=== PATIENT | female | born 1950 | race Caucasian/White ===

== ENCOUNTER 2017-05-07 22:41 | Emergency (ER) | payer MEDICARE, BC ==
[2017-05-07] MEDS ORDERED: RX INFO: IV CONTRAST WAS GIVEN 1 EACH MISC MISCELLANE PRN (23:30)
[2017-05-07 23:34] LABS: Basophils % (A) 0 %; CHCM 33.1; Eosinophils # (A) 0.1 k/uL (0-0.7); Eosinophils % (A) 0 %; HCT 41.1 % (34.0-46.0); HDW 2.24; HGB 13.5 gm/dL (11.4-16.0); Luc # (Auto) 0.11; Luc % (Auto) 1; Lymphocytes # (A) 1.1 k/uL (1.0-4.8); Lymphocytes % (A) 10 %; MCH 28.9 pg (25.0-35.0); MCHC 32.9 g/dL (31.0-37.0); MCV 87.9 fL (80.0-100.0); Mean Platelet Volume 7.2; Monocytes # (A) 0.8 k/uL (0-1.0); Monocytes % (A) 7 %; Neutrophils # (A) 9.5 k/uL (1.3-7.7); Neutrophils % (A) 82 %; RBC 4.68 m/uL (3.80-5.40); RDW 13.8 % (11.5-15.5); WBC 11.5 k/uL (3.8-10.6); WBC (Perox) 11.71
[2017-05-07 23:44] LABS: Partial Thromboplastin Time 22.6 sec (22.0-30.0)
[2017-05-07 23:45] LABS: ALT 33 U/L (9-52); AST 25 U/L (14-36); Alkaline Phosphatase 101 U/L (38-126); Anion Gap 12 mmol/L; Blood Urea Nitrogen 16 mg/dL (7-17); Calcium 9.9 mg/dL (8.4-10.2); Carbon Dioxide 25 mmol/L (22-30); Chloride 101 mmol/L (98-107); Glucose 136 mg/dL (74-99); Magnesium 1.7 mg/dL (1.6-2.3); Non-African American GFR(MDRD) >60 (>60 ml/min/1.73 sqM); Sodium 138 mmol/L (137-145); Total Bilirubin 0.5 mg/dL (0.2-1.3); Total Protein 7.2 g/dL (6.3-8.2)
[2017-05-07 23:46] LABS: Prothrombin Time 10.1 sec (9.0-12.0)
[2017-05-08 00:07] LABS: Creatine Kinase 121 U/L (30-135)
[2017-05-08 00:20] LABS: Creatine Kinase MB 1.3 ng/mL (0.0-2.4); Troponin I <0.012 ng/mL (0.000-0.034)
[2017-05-08] MEDS ORDERED: MORPHINE SULFATE 4 MG/ML SYRINGE IVP STA (00:31)
[2017-05-08] MEDS ORDERED: SODIUM CHLORIDE 0.9% 1,000 ML IV ONE (00:31)
--- NOTE | 2017-05-08 00:40 | ED ---
General Adult HPI - General Chief complaint: GI Bleed Stated complaint: Abd pain Time Seen by Provider: 05/07/17 22:59 Source: patient, family, RN notes reviewed Mode of arrival: ambulatory Limitations: no limitations - History of Present Illness Initial comments: 67-year-old female with no significant past medical history presents with crampy abdominal pain. This pain began last night. Describes it as both sides of her lower abdomen. She also fever and chills. Denies any nausea vomiting. States she's had some diarrhea which was clear mucus with some small amounts of blood. Only abdominal surgery is a remote history of hysterectomy. Denies dysuria. Denies chest pain or shortness of breath. Denies cough. - Related Data Home Medications Medication Instructions Recorded Confirmed Calcium Carbonate [Calcium] 600 mg PO TID 05/07/17 05/07/17 Cod Liver Oil 1 cap PO DAILY 05/07/17 05/07/17 Famotidine [Pepcid] 20 mg PO DAILY PRN 05/07/17 05/07/17 Multivitamins, Thera [Multivitamin 1 tab PO DAILY 05/07/17 05/07/17 (formulary)] Previous Rx's Medication Instructions Recorded Ciprofloxacin HCl [Cipro] 500 mg PO Q12HR #20 tablet 05/08/17 HYDROcodone/APAP 5-325MG [[place] 1 tab PO Q6HR PRN #24 tab 05/08/17 5-325] metroNIDAZOLE [Flagyl] 500 mg PO Q8HR #30 tab 05/08/17 Allergies Allergy/AdvReac Type Severity Reaction Status Date / Time erythromycin base AdvReac Severe Nausea & Verified 05/07/17 23:41 [From Erythrocin] Vomiting Review of Systems ROS Statement: Those systems with pertinent positive or pertinent negative responses have been documented in the HPI. ROS Other: All systems not noted in ROS Statement are negative. Past Medical History Past Medical History: No Reported History History of Any Multi-Drug Resistant Organisms: None Reported Past Surgical History: Hysterectomy Past Psychological History: No Psychological Hx Reported Smoking Status: Never smoker Past Alcohol Use History: None Reported Past Drug Use History: None Reported General Exam Limitations: no limitations General appearance: alert, in no apparent distress Head exam: Present: atraumatic, normocephalic Eye exam: Present: normal appearance, PERRL. Absent: scleral icterus ENT exam: Present: normal exam, mucous membranes moist Neck exam: Present: normal inspection, full ROM. Absent: meningismus Respiratory exam: Present: normal lung sounds bilaterally. Absent: respiratory distress, wheezes, rhonchi Cardiovascular Exam: Present: regular rate, normal rhythm GI/Abdominal exam: Present: soft, tenderness. Absent: distended, guarding ( Patient does have bilateral lower abdominal tenderness to palpation. No rebound or guarding), rebound Rectal exam: Present: normal inspection, normal rectal tone, heme (-) stool (No fecal material is obtained.). Absent: fecal impaction Extremities exam: Present: normal inspection, normal capillary refill. Absent: pedal edema Back exam: Present: normal inspection, full ROM Neurological exam: Present: alert, oriented X3, CN II-XII intact. Absent: motor sensory deficit Psychiatric exam: Present: normal affect, normal mood Skin exam: Present: warm, dry. Absent: cyanosis, diaphoretic Course Vital Signs 05/07/17 05/08/17 22:45 00:47 Temperature 101.1 F H 100.0 F H Pulse Rate 104 H 70 Respiratory 20 16 Rate Blood Pressure 134/73 111/70 O2 Sat by Pulse 96 Oximetry - Reevaluation(s) Reevaluation #1: 05/08/17 00:39 Reevaluation patient is still experiencing crampy lower abdominal pain. EKG Findings - EKG Comments: EKG Findings:: EKG shows normal sinus rhythm with a ventricular rate of 93, HI interval 160, QRS duration 82, QTC 4:30, no signs of ischemia Medical Decision Making - Medical Decision Making 67year-old female presenting with crampy abdominal pain, diarrhea which is really mucus with some small amounts of blood. Patient has no history of diverticulosis. When she presents she is febrile and tachycardic. CT abdomen is obtained which she shows uncomplicated diverticulitis, no abscess formation. Chest x-ray reviewed by myself is negative for any infectious process. Laboratory studies including CBC, CMP are unremarkable. Patient is not vomiting , she is able to tolerate oral medications. She will be discharged home with Cipro and Flagyl as well as pain medication. She is encouraged to return to the emergency department with worsening symptoms. Diagnosis: Diverticulitis - Lab Data Result diagrams: 05/07/17 23:26 05/07/17 23:26 Lab Results 05/07/17 05/07/1705/07/17 Range/Units 23:20 23:26 23:26 WBC 11.5 H (3.8-10.6) k/uL RBC 4.68 (3.80-5.40) m/uL Hgb 13.5 (11.4-16.0) gm/dL Hct 41.1 (34.0-46.0) % MCV 87.9 (80.0-100.0) fL MCH 28.9 (25.0-35.0) pg MCHC 32.9 (31.0-37.0) g/dL RDW 13.8 (11.5-15.5) % Plt Count 261 (150-450) k/uL Neutrophils % 82 % Lymphocytes % 10 % Monocytes % 7 % Eosinophils % 0 % Basophils % 0 % Neutrophils # 9.5 H (1.3-7.7) k/uL Lymphocytes # 1.1 (1.0-4.8) k/uL Monocytes # 0.8 (0-1.0) k/uL Eosinophils # 0.1 (0-0.7) k/uL Basophils # 0.0 (0-0.2) k/uL PT (9.0-12.0) sec INR (<1.2) APTT (22.0-30.0) sec Sodium (137-145) mmol/L Potassium (3.5-5.1) mmol/L Chloride (98-107) mmol/L Carbon Dioxide (22-30) mmol/L Anion Gap mmol/L BUN (7-17) mg/dL Creatinine (0.52-1.04) mg/dL Est GFR (MDRD) Af Amer (>60 ml/min/1.73 sqM) Est GFR (MDRD) Non-Af (>60 ml/min/1.73 sqM) Glucose (74-99) mg/dL Plasma Lactic Acid Salty (0.7-2.0) mmol/L Calcium (8.4-10.2) mg/dL Magnesium (1.6-2.3) mg/dL Total Bilirubin (0.2-1.3) mg/dL AST (14-36) U/L ALT (9-52) U/L Alkaline Phosphatase (38-126) U/L Total Creatine Kinase 121 (30-135) U/L CK-MB (CK-2) 1.3 (0.0-2.4) ng/mL CK-MB (CK-2) Rel Index 1.1 Troponin I <0.012 (0.000-0.034) ng/mL Total Protein (6.3-8.2) g/dL Albumin (3.5-5.0) g/dL Stool Occult Blood Negative (Negative) Blood Type Blood Type Recheck Antibody Screen Spec Expiration Date 05/07/17 05/07/17 05/07/17 Range/Units 23:26 23:26 23:26 WBC (3.8-10.6) k/uL RBC (3.80-5.40) m/uL Hgb (11.4-16.0) gm/dL Hct (34.0-46.0) % MCV (80.0-100.0) fL MCH (25.0-35.0) pg MCHC (31.0-37.0) g/dL RDW (11.5-15.5) % Plt Count (150-450) k/uL Neutrophils % % Lymphocytes % % Monocytes % % Eosinophils % % Basophils % % Neutrophils # (1.3-7.7) k/uL Lymphocytes # (1.0-4.8) k/uL Monocytes # (0-1.0) k/uL Eosinophils # (0-0.7) k/uL Basophils # (0-0.2) k/uL PT 10.1 (9.0-12.0) sec INR 1.0 (<1.2) APTT 22.6 (22.0-30.0) sec Sodium 138 (137-145) mmol/L Potassium 4.0 (3.5-5.1) mmol/L Chloride 101 (98-107) mmol/L Carbon Dioxide 25 (22-30) mmol/L Anion Gap 12 mmol/L BUN 16 (7-17) mg/dL Creatinine 0.50 L (0.52-1.04) mg/dL Est GFR (MDRD) Af Amer >60 (>60 ml/min/1.73 sqM) Est GFR (MDRD) Non-Af >60 (>60 ml/min/1.73 sqM) Glucose 136 H (74-99) mg/dL Plasma Lactic Acid Salty 1.0 (0.7-2.0) mmol/L Calcium 9.9 (8.4-10.2) mg/dL Magnesium 1.7 (1.6-2.3) mg/dL Total Bilirubin 0.5 (0.2-1.3) mg/dL AST 25 (14-36) U/L ALT 33 (9-52) U/L Alkaline Phosphatase 101 (38-126) U/L Total Creatine Kinase (30-135) U/L CK-MB (CK-2) (0.0-2.4) ng/mL CK-MB (CK-2) Rel Index Troponin I (0.000-0.034) ng/mL Total Protein 7.2 (6.3-8.2) g/dL Albumin 4.6 (3.5-5.0) g/dL Stool Occult Blood (Negative) Blood Type Blood Type Recheck Antibody Screen Spec Expiration Date 05/07/17 Range/Units 23:26 WBC (3.8-10.6) k/uL RBC (3.80-5.40) m/uL Hgb (11.4-16.0) gm/dL Hct (34.0-46.0) % MCV (80.0-100.0) fL MCH (25.0-35.0) pg MCHC (31.0-37.0) g/dL RDW (11.5-15.5) % Plt Count (150-450) k/uL Neutrophils % % Lymphocytes % % Monocytes % % Eosinophils % % Basophils % % Neutrophils # (1.3-7.7) k/uL Lymphocytes # (1.0-4.8) k/uL Monocytes # (0-1.0) k/uL Eosinophils # (0-0.7) k/uL Basophils # (0-0.2) k/uL PT (9.0-12.0) sec INR (<1.2) APTT (22.0-30.0) sec Sodium (137-145) mmol/L Potassium (3.5-5.1) mmol/L Chloride (98-107) mmol/L Carbon Dioxide (22-30) mmol/L Anion Gap mmol/L BUN (7-17) mg/dL Creatinine (0.52-1.04) mg/dL Est GFR (MDRD) Af Amer (>60 ml/min/1.73 sqM) Est GFR (MDRD) Non-Af (>60 ml/min/1.73 sqM) Glucose (74-99) mg/dL Plasma Lactic Acid Salty (0.7-2.0) mmol/L Calcium (8.4-10.2) mg/dL Magnesium (1.6-2.3) mg/dL Total Bilirubin (0.2-1.3) mg/dL AST (14-36) U/L ALT (9-52) U/L Alkaline Phosphatase (38-126) U/L Total Creatine Kinase (30-135) U/L CK-MB (CK-2) (0.0-2.4) ng/mL CK-MB (CK-2) Rel Index Troponin I (0.000-0.034) ng/mL Total Protein (6.3-8.2) g/dL Albumin (3.5-5.0) g/dL Stool Occult Blood (Negative) Blood Type A Positive Blood Type Recheck CABO Indicated Antibody Screen NEGATIVE Spec Expiration Date 05/10/20172325 Disposition Clinical Impression: Diverticulitis Disposition: HOME SELF-CARE Condition: Stable Instructions: Diverticulitis (ED) Prescriptions: Ciprofloxacin HCl [Cipro] 500 mg PO Q12HR #20 tablet HYDROcodone/APAP 5-325MG [[place] 5-325] 1 tab PO Q6HR PRN #24 tab PRN Reason: Pain metroNIDAZOLE [Flagyl] 500 mg PO Q8HR #30 tab Referrals: Shayna Farias MD [Primary Care Provider] - 1-2 days Time of Disposition: 01:00
[2017-05-08 00:49] VITALS: BP 111/70; PULSE 70; RESP 16; TEMP 100
--- NOTE | 2017-05-08 00:50 | CT ---
EXAM: CT Abdomen and Pelvis With Intravenous Contrast. CLINICAL HISTORY: Reason: Pain TECHNIQUE: Axial computed tomography images of the abdomen and pelvis with intravenous contrast. CTDI is 7 mGy and DLP is 347.6 mGy-cm. This CT exam was performed using one or more of the following dose reduction techniques: automated exposure control, adjustment of the mA and/or kV according to patient size, and/or use of iterative reconstruction technique. COMPARISON: No relevant prior studies available. FINDINGS: Lower thorax: No acute findings. ABDOMEN: Liver: Unremarkable. No mass. Gallbladder and bile ducts: Unremarkable. No calcified stones. No ductal dilation. Pancreas: Unremarkable. No ductal dilation. No mass. Spleen: Unremarkable. No splenomegaly. Adrenals: Unremarkable. No mass. Kidneys and ureters: Unremarkable. No hydronephrosis. No solid mass. PELVIS: Bladder: Unremarkable. No mass. Reproductive: Prior hysterectomy. Appendix: No findings to suggest acute appendicitis. ABDOMEN + PELVIS: Stomach and bowel: Moderate focal thickening of the sigmoid colon, with surrounding inflammatory change suggestive of uncomplicated sigmoid diverticulitis. No free air or abscess. No obstruction. Peritoneum: Unremarkable. No significant fluid collection. No free air. Lymph nodes: Unremarkable. No enlarged lymph nodes. Vasculature: Unremarkable. No aortic aneurysm. Bones: No acute fracture. IMPRESSION: Uncomplicated diverticulitis of the sigmoid colon.
[2017-05-08] MEDS ORDERED: metroNIDAZOLE 500 MG TAB PO STA (00:57)
[2017-05-08] MEDS ORDERED: CIPROFLOXACIN HCL 500 MG TAB PO STA (00:57)
[2017-05-08 01:07] LABS: Appearance,Urine Clear (Clear); Bacteria,Urine Rare /hpf; Bilirubin,Urine Negative (Negative); Glucose,Urine (UA) Negative (Negative); Ketones,Urine 1+ (Negative); Leukocyte Esterase,Urine Large (Negative); Mucus,Urine Rare /hpf; Nitrite,Urine Negative (Negative); PH, Urine 5.5 (5.0-8.0); Particle Count 3496; Protein,Urine Negative (Negative); RBC,Urine 2 /hpf (0-5); Specific Gravity,Urine 1.022 (1.001-1.035); Squamous Epithelial Cell,Urine 4 /hpf (0-4); UA Billing (MACRO vs. MICRO) MICRO; Urobilinogen,Urine <2.0 mg/dL (<2.0); WBC,Urine 15 /hpf (0-5)
--- NOTE | 2017-05-08 01:37 | XR ---
EXAM: XR Chest, 2 Views. CLINICAL HISTORY: Reason: Pain TECHNIQUE: Frontal and lateral views of the chest. COMPARISON: No relevant prior studies available. FINDINGS: Lungs: Unremarkable. No consolidation. Pleural spaces: Unremarkable. No pneumothorax. Heart: Unremarkable. No cardiomegaly. Mediastinum: Unremarkable. Bones: Unremarkable. No acute fracture. IMPRESSION: Normal chest.
== END 2017-05-08 01:31 | disposition home or self-care (01) ==
LOC: EC 22:41
DX: K57.32 Diverticulitis of large intestine without perforation or abscess without bleeding (principal); Z79.899 Other long term (current) drug therapy; Z88.1 Allergy status to other antibiotic agents; R00.0 Tachycardia, unspecified
CPT/HCPCS: 99285; 96374; 96361; 36415; 93005; 86900; 86901; 80053; 82550; 82553; 83605; 83735; 84484; 85025; 85610; 85730; 86850; 82272; 81001; 87040; 87086; 71020; 74177; J2270; Q9967

== ENCOUNTER → 2017-06-15 | Outpatient (CLI) | payer MEDICARE, BC ==
--- NOTE | 2017-06-16 10:07 | MM ---
Reason for exam: screening (asymptomatic). Last mammogram was performed 1 year ago. History: Family history of breast cancer in maternal grandmother at age 80. Physical Findings: A clinical breast exam by your physician is recommended on an annual basis and results should be correlated with mammographic findings. MG 3D Screening Mammo W/Cad Bilateral CC and MLO view(s) were taken. Prior study comparison: June 11, 2016, bilateral MG 3d screening mammo w/cad. June 14, 2015, left breast MG work up mamm w CAD LT. There are scattered fibroglandular densities. No significant changes when compared with prior studies. ASSESSMENT: Benign, BI-RAD 2 RECOMMENDATION: Routine screening mammogram of both breasts in 1 year.
== END | disposition home or self-care (01) ==
LOC: RADMAMWWP 10:50
PROVIDERS: ATTEND Internal Medicine
DX: Z12.31 Encounter for screening mammogram for malignant neoplasm of breast (principal)
CPT/HCPCS: 77063; G0202

== ENCOUNTER → 2017-06-21 | Outpatient (CLI) | payer MEDICARE, BC ==
--- NOTE | 2017-06-21 16:38 | XR ---
EXAMINATION TYPE: XR shoulder complete RT DATE OF EXAM: 06/21/2017 COMPARISON: NONE HISTORY: Pain TECHNIQUE: 3 views FINDINGS: I see no fracture nor dislocation. Glenohumeral joint is intact. There is spurring at the A C joint. IMPRESSION: No acute abnormality of the right shoulder.
== END | disposition home or self-care (01) ==
LOC: RADXRYALE 16:12
PROVIDERS: ATTEND Internal Medicine
DX: M25.511 Pain in right shoulder (principal)

== ENCOUNTER → 2018-07-06 | Outpatient (CLI) | payer MEDICARE, BC ==
--- NOTE | 2018-07-08 14:02 | MM ---
Reason for exam: screening (asymptomatic). Last mammogram was performed 1 year and 1 month ago. History: Family history of breast cancer in maternal grandmother at age 80. Physical Findings: A clinical breast exam by your physician is recommended on an annual basis and results should be correlated with mammographic findings. MG 3D Screening Mammo W/Cad Bilateral CC and MLO view(s) were taken. Prior study comparison: June 15, 2017, bilateral MG 3d screening mammo w/cad. June 11, 2016, bilateral MG 3d screening mammo w/cad. There are scattered fibroglandular densities. Finding: There is equal, spiculated architectural distortion located 7 cm from the nipple in the middle position of the left breast on MLO view with calcifications anteriorly. New finding since June 15, 2017 and June 11, 2016. ASSESSMENT: Incomplete: need additional imaging evaluation, BI-RAD 0 RECOMMENDATION: Special view mammogram of the left breast. If lesion persists on supplemental views, image directed ultrasound is recommended. [facility] will attempt to contact patient to return for supplemental views and ultrasound if indicated.
== END ==
LOC: RADMAMWWP 10:51
PROVIDERS: ATTEND Internal Medicine
DX: Z12.31 Encounter for screening mammogram for malignant neoplasm of breast (principal)
CPT/HCPCS: 77063; 77067

== ENCOUNTER → 2018-07-19 | Outpatient (CLI) | payer MEDICARE, BC ==
--- NOTE | 2018-07-19 13:47 | MM ---
Reason for exam: additional evaluation requested from abnormal screening. Last mammogram was performed less than 1 month ago. History: Family history of breast cancer in maternal grandmother at age 80. Physical Findings: Nurse did not find any significant physical abnormalities on exam. MG 3D Work Up W/Cad LT Spot compression CC and spot compression MLO view(s) were taken of the left breast. Prior study comparison: July 06, 2018, bilateral MG 3d screening mammo w/cad. June 15, 2017, bilateral MG 3d screening mammo w/cad. The breast tissue is heterogeneously dense. This may lower the sensitivity of mammography. No distinct lesion persists on additional views. These results were verbally communicated with the patient and result sheet given to the patient on 07/19/18. ASSESSMENT: Benign, BI-RAD 2 RECOMMENDATION: Return to routine screening mammogram schedule for both breasts.
== END | disposition home or self-care (01) ==
LOC: RADMAMWWP 12:49
PROVIDERS: ATTEND Internal Medicine
DX: R92.8 Other abnormal and inconclusive findings on diagnostic imaging of breast (principal)
CPT/HCPCS: 77065; G0279; 77061

== ENCOUNTER 2019-07-09 19:11 | Emergency (ER) | payer MEDICARE, BC ==
[2019-07-09] MEDS ORDERED: AMOXIC-POT CLAV 875-125MG 1 EACH TAB PO STA (19:53)
[2019-07-09] MEDS ORDERED: FLUTICASONE 50MCG/SPRAY NASAL 16GM EA NOSTRIL STA (19:53)
[2019-07-09] MEDS ORDERED: AMOXIC-POT CLAV 875MG STARTER 2 EACH TABLET PO STA (19:53)
[2019-07-09] MEDS ORDERED: predniSONE 50 MG TAB PO STA (20:31)
--- NOTE | 2019-07-09 20:49 | XR ---
EXAMINATION TYPE: XR soft tissue neck DATE OF EXAM: 07/09/2019 COMPARISON: NONE HISTORY: Swelling TECHNIQUE: 2 views FINDINGS: Epiglottis is normal. Subglottic trachea appears normal. I see no evidence of a retropharyn geal mass. Tonsils appear normal. IMPRESSION: Negative cervical soft tissue exam. Mild spondylotic changes noted in the cervical spine.
--- NOTE | 2019-07-09 21:06 | ED ---
General Adult HPI - General Chief complaint: ENT Stated complaint: Throat pain Time Seen by Provider: 07/09/19 19:37 Source: patient, family, RN notes reviewed, old records reviewed Mode of arrival: ambulatory Limitations: no limitations - History of Present Illness Initial comments: 69-year-old female patient resents in ED with chief complaint of sinus pressure, sinus drainage, sensation of fullness in her right submandibular region, right ear pressure. Denies any other complaints. Systemic: Pt denies fatigue, fever/chills, rash. Pt denies weakness, night sweats, weight loss. Neuro: Pt denies headache, visual disturbances, syncope or pre-syncope. HEENT: Pt denies ocular discharge or irritation, otalgia, rhinorrhea, pharyngitis or notable lymphadenopathy. Cardiopulmonary: Pt denies chest pain, SOB, heart palpitations, dyspnea on exertion. Abdominal/GI: Pt denies abdominal pain, n/v/d. : Pt denies dysuria, burning w/ urination, frequency/urgency. Denies new onset urinary or bowel incontinence. MSK: Pt denies myalgia, loss of strength or function in extremities. Neuro: Pt denies new onset weakness, paresthesias. - Related Data Previous Rx's Medication Instructions Recorded Amoxicillin/Potassium Clav 1 each PO Q12HR 7 Days #14 tab 07/09/19 [Augmentin 875-125 Tablet] predniSONE 50 mg PO DAILY #4 tab 07/09/19 Allergies Allergy/AdvReac Type Severity Reaction Status Date / Time ciprofloxacin Allergy Rash/Hives Verified 07/09/19 19:36 erythromycin base AdvReac Severe Nausea & Verified 07/09/19 19:36 [From Erythrocin] Vomiting Review of Systems ROS Statement: Those systems with pertinent positive or pertinent negative responses have been documented in the HPI. ROS Other: All systems not noted in ROS Statement are negative. Past Medical History Past Medical History: No Reported History Additional Past Medical History / Comment(s): DIVERTICULITIS History of Any Multi-Drug Resistant Organisms: None Reported Past Surgical History: Hysterectomy, Orthopedic Surgery Additional Past Surgical History / Comment(s): COLONOSCOPY. TRIGGER FINGER REPAIR RT HAND Past Anesthesia/Blood Transfusion Reactions: No Reported Reaction Past Psychological History: No Psychological Hx Reported Smoking Status: Never smoker Past Alcohol Use History: None Reported Past Drug Use History: None Reported - Past Family History Mother Family Medical History: Cancer, Deep Vein Thrombosis (DVT) Father Family Medical History: Cancer Brother(s) Family Medical History: Cancer General Exam - General Exam Comments Initial Comments: Constitutional: NAD, AOX3, Pt has pleasant affect. HEENT: NC/AT, trachea midline, neck supple, no lymphadenopathy. Posterior pharynx non erythematous, without exudates. External ears appear normal, without discharge. Mucous membranes moist. Eyes PERRLA, EOM intact. There is no scleral icterus. No pallor noted. Maxillary sinus pressure reproducible upon palpation. Submandibular lymph node enlarged in area of complaint. Posterior pharynx non edematous. TM pale bailey bilaterally. Cardiopulmonary: RRR, no murmurs, rubs or gallops, no JVD noted. Lungs CTAB in anterior and posterior dooley. No peripheral edema. Abdominal exam: Abdomen soft and non-distended. Abdomen non-tender to palpation in all 4 quadrants. Bowel sounds active in LLQ. No hepatosplenomegaly. No ecchymosis Neuro: CN II-XII grossly intact. No nuchal rigidity. No raccon eyes, no kang sign, no hemotympanum. No cervical spinal tenderness. MSK: No posterior calf tenderness bilaterally, homans sign negative bilaterally. Posterior tibialis and radial pulse +2 bilaterally. Sensation intact in upper and lower extremities. Full active ROM in upper and lower extremities, 5/5 stregnth. Limitations: no limitations Course Vital Signs 07/09/19 19:33 Temperature 98.6 F Pulse Rate 82 Respiratory 20 Rate Blood Pressure 153/96 O2 Sat by Pulse 97 Oximetry Medical Decision Making - Medical Decision Making 69-year-old female patient resents in ED with chief complaint of sinus pressure, sinus drainage, sensation of fullness in her right submandibular region, right ear pressure. Denies any other complaints. Pt VSS, afebrile. Physical exam displayed: Maxillary sinus pressure reproducible upon palpation. Submandibular lymph node enlarged in area of complaint. Posterior pharynx non edematous or erythematous TM pale bailey bilaterally. Soft tissue neck abscess with acute process. Patient was treated for sinusitis with Augmentin. Discharged with prednisone as well as Flonase. Case discussed with Dr. Rosenbaum. Disposition Clinical Impression: Sinusitis Disposition: HOME SELF-CARE Condition: Stable Instructions (If sedation given, give patient instructions): Sinusitis (ED) Additional Instructions: Patient to adhere to previously discussed treatment plan and will take medication(s) as directed. Patient to follow up with PCP in 1-2 days. Patient to return to ED if symptoms do not improve. Take antibiotics as directed, take steroids as directed. Follow up with PCP tomorrow. Return to ER if condition worsens. Prescriptions: Amoxicillin/Potassium Clav [Augmentin 875-125 Tablet] 1 each PO Q12HR 7 Days #14 tab predniSONE 50 mg PO DAILY #4 tab Is patient prescribed a controlled substance at d/c from ED?: No Referrals: Shayna Farias MD [Primary Care Provider] - 1-2 days
[2019-07-09 21:16] VITALS: BP 155/72; PULSE 84; RESP 18; TEMP 98.7
== END 2019-07-09 21:15 | disposition home or self-care (01) ==
LOC: EC 19:11
DX: J32.9 Chronic sinusitis, unspecified (principal); L02.11 Cutaneous abscess of neck; Z88.1 Allergy status to other antibiotic agents
CPT/HCPCS: 70360; 99283; J7512

== ENCOUNTER → 2019-07-24 | Outpatient (CLI) | payer MEDICARE, BC ==
--- NOTE | 2019-07-25 14:54 | MM ---
Reason for exam: screening (asymptomatic). Last mammogram was performed 1 year ago. History: Family history of breast cancer in maternal grandmother at age 80. Physical Findings: A clinical breast exam by your physician is recommended on an annual basis and results should be correlated with mammographic findings. MG 3D Screening Mammo W/Cad Bilateral CC and MLO view(s) were taken. Prior study comparison: July 19, 2018, left breast MG 3d work up w/cad LT. July 06, 2018, bilateral MG 3d screening mammo w/cad. There are scattered fibroglandular densities. No significant changes when compared with prior studies. ASSESSMENT: Benign, BI-RAD 2 RECOMMENDATION: Routine screening mammogram of both breasts in 1 year.
== END | disposition home or self-care (01) ==
LOC: RADMAMWWP 14:47
PROVIDERS: ATTEND Internal Medicine
DX: Z12.31 Encounter for screening mammogram for malignant neoplasm of breast (principal)
CPT/HCPCS: 77063; 77067

== ENCOUNTER → 2019-08-07 | Outpatient (CLI) | payer MEDICARE, BC ==
--- NOTE | 2019-08-07 13:11 | XR ---
EXAMINATION TYPE: XR shoulder limited bilateral DATE OF EXAM: 08/07/2019 COMPARISON: 02/21/2015 left shoulder HISTORY: Pain TECHNIQUE: Bilateral shoulders are examined in 2 views each. FINDINGS: The humeral head articulates with the glenoid. The acromio-clavicular junction is normal. No acute fractures or dislocations are evident. A follow up study can be performed 7-10 days from acute trauma for continued pain. IMPRESSION: 1. Normal 2 view bilateral shoulders
== END | disposition home or self-care (01) ==
LOC: RADXRYALE 12:51
PROVIDERS: ATTEND Internal Medicine
DX: M25.511 Pain in right shoulder (principal); M25.512 Pain in left shoulder

== ENCOUNTER 2020-11-01 09:59 | Emergency (ER) | payer MEDICARE ==
[2020-11-01] MEDS ORDERED: KETOROLAC 15 MG/ML 1 ML VIAL IVP STA (10:34)
[2020-11-01] MEDS ORDERED: SODIUM CHLORIDE 0.9% 500 ML 500 ML IV STA (10:34)
--- NOTE | 2020-11-01 10:52 | ED ---
General Adult HPI - General Chief complaint: Fall Stated complaint: rib/back pain Time Seen by Provider: 11/01/20 10:15 Source: patient, family Mode of arrival: ambulatory Limitations: no limitations - History of Present Illness Initial comments: Patient is a 70-year-old female presenting to the emergency Department with complaints of right sided rib, abdominal pain that started last night. Patient states she has had 2 slips this week, one on Wednesday where she slipped on some ice but she was able to catch herself. She does not remember hitting her side in anything, she did not hit her head. Patient states 2 days ago she also had another little slip on a stair trying to carry laundry. Patient states again she did not fall all the way down she just slipped, she did not hit anything in particular. She denies any pain in her extremity is. Patient states she has been feeling a "twinge in her right lower ribs" over the past few days but since yesterday evening the pain has intensified. Patient states she was not able to sleep last night secondary to the pain. She does admit to history of diverticuli but no abdominal surgeries. She denies any fever or chills, no diarrhea, she's been having regular bowel movements. No diarrhea. She denies any dysuria. She denies history of kidney stones. She has no further complaints at this time. Upon arrival to the ER, she is afebrile, hypertensive at 187/100, rest of vitals are normal. - Related Data Home Medications Medication Instructions Recorded Confirmed Calcium W/Vitamin D3(Unknown Dose) 1 tab PO TID 11/01/20 11/01/20 Multivitamins, Thera [Multivitamin 1 tab PO DAILY 11/01/20 11/01/20 (formulary)] Simvastatin 20 mg PO HS 11/01/20 11/01/20 Previous Rx's Medication Instructions Recorded Amoxicillin/Potassium Clav 1 tab PO BID 5 Days #10 tab 11/01/20 [Augmentin 875-125 Tablet] Omeprazole 40 mg PO DAILY #14 capsule. 11/01/20 Allergies Allergy/AdvReac Type Severity Reaction Status Date / Time ciprofloxacin Allergy Rash/Hives Verified 11/01/20 10:55 erythromycin base AdvReac Severe Nausea & Verified 11/01/20 10:55 [From Erythrocin] Vomiting Review of Systems ROS Statement: Those systems with pertinent positive or pertinent negative responses have been documented in the HPI. ROS Other: All systems not noted in ROS Statement are negative. Past Medical History Past Medical History: No Reported History Additional Past Medical History / Comment(s): DIVERTICULITIS History of Any Multi-Drug Resistant Organisms: None Reported Past Surgical History: Hysterectomy, Orthopedic Surgery Additional Past Surgical History / Comment(s): COLONOSCOPY. TRIGGER FINGER REPAIR RT HAND Past Anesthesia/Blood Transfusion Reactions: No Reported Reaction Past Psychological History: No Psychological Hx Reported Smoking Status: Never smoker Past Alcohol Use History: None Reported Past Drug Use History: None Reported - Past Family History Mother Family Medical History: Cancer, Deep Vein Thrombosis (DVT) Father Family Medical History: Cancer Brother(s) Family Medical History: Cancer General Exam - General Exam Comments Initial Comments: GENERAL: Patient is well-developed and well-nourished. Patient is nontoxic and in no acute distress. HEAD: Atraumatic, normocephalic. EYES: Pupils equal round and reactive to light, extraocular movements intact, sclera anicteric, conjunctiva are normal. Eyelids were unremarkable. ENT: TMs normal, nares patent, oropharynx clear without exudates. Moist mucous membranes. NECK: Normal range of motion, supple without lymphadenopathy or JVD. LUNGS: Unlabored respirations. Breath sounds clear to auscultation bilaterally and equal. No wheezes rales or rhonchi. HEART: Regular rate and rhythm without murmurs, rubs or gallops. ABDOMEN: Mild tenderness with palpation epigastric and right upper quadrant, no other a reas of tenderness. Soft, normoactive bowel sounds. No guarding, no rebound. No masses appreciated. : Deferred MUSCULOSKELETAL: Normal extremities with adequate strength and normal range of motion, no pitting or edema. No clubbing or cyanosis. NEUROLOGICAL: Patient is alert and oriented x 3. Motor and sensory are also intact. Cranial nerves II through XII grossly intact. Symmetrical smile. Normal speech, normal gait. PSYCH: Normal mood, normal affect. SKIN: Warm, Dry, normal turgor, no rashes or lesions noted. Limitations: no limitations Course Vital Signs 11/01/20 11/01/20 11/01/20 10:10 11:21 13:13 Temperature 98.6 F 98.2 F Pulse Rate 84 75 73 Respiratory 18 17 18 Rate Blood Pressure 187/100 159/87 149/73 O2 Sat by Pulse 96 98 96 Oximetry 11/01/20 11/01/20 14:25 15:15 Temperature 98.6 F Pulse Rate 77 71 Respiratory 16 18 Rate Blood Pressure 151/82 154/78 O2 Sat by Pulse 96 98 Oximetry EKG Findings - EKG Comments: EKG Findings:: Normal sinus rhythm, minimal voltage criteria for LVH, may be normal variant. No signs of acute process. Similar to previous and 05/07/2017. Blood sugar 83, para 150, QT 386. Medical Decision Making - Medical Decision Making Patient is a 70-year-old female presenting for right sided lower rib, right upper quadrant pain that intensified last night. No history of abdominal surgeries, history of diverticuli, no kidney stones. She is slightly hyperte nsive upon arrival, afebrile. Her exam reveals mild tenderness of the right upper quadrant and epigastric area. Labs show a normal white count, lactic acid was slightly elevated at 2.1, troponin was normal, urine is normal. I initially ordered a ultrasound of the gallbladder, there is mild sludge present, no gallstones, underlying hepatocellular disease. Patient was given some fluids and Toradol and continues to have pain. We then ordered CT of the abdomen and pelvis which shows mild uncomplicated acute colitis of the transverse colon, no other acute findings. Patient states her pain has improved. I discussed these findings with the patient. I did recommend starting her omeprazole again secondary to having increase in her acid reflux symptoms as well as a trial of Augmentin for possible colitis. Patient is in agreement this plan of care. We discussed drinking plenty of fluids. She can follow-up with her doctor if symptoms persist. Strict return parameters were discussed with the patient and she verbalized understanding. She is stable for discharge and she is in agreement with this plan of care. - Lab Data Result diagrams: 11/01/20 11:02 11/01/20 11:02 Lab Results 11/01/20 11/01/20 11/01/20 Range/Units 11:02 11:02 11:02 WBC 4.6 (3.8-10.6) k/uL RBC 4.60 (3.80-5.40) m/uL Hgb 13.6 (11.4-16.0) gm/dL Hct 39.8 (34.0-46.0) % MCV 86.6 (80.0-100.0) fL MCH 29.5 (25.0-35.0) pg MCHC 34.1 (31.0-37.0) g/dL RDW 13.2 (11.5-15.5) % Plt Count 242 (150-450) k/uL MPV 6.2 Neutrophils % 60 % Lymphocytes % 28 % Monocytes % 7 % Eosinophils % 1 % Basophils % 1 % Neutrophils # 2.8 (1.3-7.7) k/uL Lymphocytes # 1.3 (1.0-4.8) k/uL Monocytes # 0.3 (0-1.0) k/uL Eosinophils # 0.0 (0-0.7) k/uL Basophils # 0.0 (0-0.2) k/uL PT (9.0-12.0) sec INR (<1.2) APTT (22.0-30.0) sec Sodium 137 (137-145) mmol/L Potassium 4.1 (3.5-5.1) mmol/L Chloride 104 (98-107) mmol/L Carbon Dioxide 26 (22-30) mmol/L Anion Gap 7 mmol/L BUN 14 (7-17) mg/dL Creatinine 0.46 L (0.52-1.04) mg/dL Est GFR (CKD-EPI)AfAm >90 (>60 ml/min/1.73 sqM) Est GFR (CKD-EPI)NonAf >90 (>60 ml/min/1.73 sqM) Glucose 113 H (74-99) mg/dL Lactic Ac Sepsis Rflx Plasma Lactic Acid Salty 2.1 H* (0.7-2.0) mmol/L Calcium 9.6 (8.4-10.2) mg/dL Total Bilirubin 0.4 (0.2-1.3) mg/dL AST 34 (14-36) U/L ALT 36 H (4-34) U/L Alkaline Phosphatase 91 (38-126) U/L Troponin I (0.000-0.034) ng/mL Total Protein 7.8 (6.3-8.2) g/dL Albumin 4.8 (3.5-5.0) g/dL Lipase 52 (23-300) U/L Urine Color Urine Appearance (Clear) Urine pH (5.0-8.0) Ur Specific [place] (1.001-1.035) Urine Protein (Negative) Urine Glucose (UA) (Negative) Urine Ketones (Negative) Urine Blood (Negative) Urine Nitrite (Negative) Urine Bilirubin (Negative) Urine Urobilinogen (<2.0) mg/dL Ur Leukocyte Esterase (Negative) 11/01/20 11/01/20 11/01/20 Range/Units 11:02 11:02 11:02 WBC (3.8-10.6) k/uL RBC (3.80-5.40) m/uL Hgb (11.4-16.0) gm/dL Hct (34.0-46.0) % MCV (80.0-100.0) fL MCH (25.0-35.0) pg MCHC (31.0-37.0) g/dL RDW (11.5-15.5) % Plt Count (150-450) k/uL MPV Neutrophils % % Lymphocytes % % Monocytes % % Eosinophils % % Basophils % % Neutrophils # (1.3-7.7) k/uL Lymphocytes # (1.0-4.8) k/uL Monocytes # (0-1.0) k/uL Eosinophils # (0-0.7) k/uL Basophils # (0-0.2) k/uL PT 10.1 (9.0-12.0) sec INR 0.9 (<1.2) APTT 21.5 L (22.0-30.0) sec Sodium (137-145) mmol/L Potassium (3.5-5.1) mmol/L Chloride (98-107) mmol/L Carbon Dioxide (22-30) mmol/L Anion Gap mmol/L BUN (7-17) mg/dL Creatinine (0.52-1.04) mg/dL Est GFR (CKD-EPI)AfAm (>60 ml/min/1.73 sqM) Est GFR (CKD-EPI)NonAf (>60 ml/min/1.73 sqM) Glucose (74-99) mg/dL Lactic Ac Sepsis Rflx Plasma Lactic Acid Salty (0.7-2.0) mmol/L Calcium (8.4-10.2) mg/dL Total Bilirubin (0.2-1.3) mg/dL AST (14-36) U/L ALT (4-34) U/L Alkaline Phosphatase (38-126) U/L Troponin I <0.012 (0.000-0.034) ng/mL Total Protein (6.3-8.2) g/dL Albumin (3.5-5.0) g/dL Lipase (23-300) U/L Urine Color Yellow Urine Appearance Clear (Clear) Urine pH 7.5 (5.0-8.0) Ur Specific [place] 1.023 (1.001-1.035) Urine Protein Trace H (Negative) Urine Glucose (UA) Negative (Negative) Urine Ketones Negative (Negative) Urine Blood Negative (Negative) Urine Nitrite Negative (Negative) Urine Bilirubin Negative (Negative) Urine Urobilinogen <2.0 (<2.0) mg/dL Ur Leukocyte Esterase Negative (Negative) 11/01/20 11/01/20 Range/Units 12:17 14:32 WBC (3.8-10.6) k/uL RBC (3.80-5.40) m/uL Hgb (11.4-16.0) gm/dL Hct (34.0-46.0) % MCV (80.0-100.0) fL MCH (25.0-35.0) pg MCHC (31.0-37.0) g/dL RDW (11.5-15.5) % Plt Count (150-450) k/uL MPV Neutrophils % % Lymphocytes % % Monocytes % % Eosinophils % % Basophils % % Neutrophils # (1.3-7.7) k/uL Lymphocytes # (1.0-4.8) k/uL Monocytes # (0-1.0) k/uL Eosinophils # (0-0.7) k/uL Basophils # (0-0.2) k/uL PT (9.0-12.0) sec INR (<1.2) APTT (22.0-30.0) sec Sodium (137-145) mmol/L Potassium (3.5-5.1) mmol/L Chloride (98-107) mmol/L Carbon Dioxide (22-30) mmol/L Anion Gap mmol/L BUN (7-17) mg/dL Creatinine (0.52-1.04) mg/dL Est GFR (CKD-EPI)AfAm (>60 ml/min/1.73 sqM) Est GFR (CKD-EPI)NonAf (>60 ml/min/1.73 sqM) Glucose (74-99) mg/dL Lactic Ac Sepsis Rflx Y Plasma Lactic Acid Salty 1.5 (0.7-2.0) mmol/L Calcium (8.4-10.2) mg/dL Total Bilirubin (0.2-1.3) mg/dL AST (14-36) U/L ALT (4-34) U/L Alkaline Phosphatase (38-126) U/L Troponin I (0.000-0.034) ng/mL Total Protein (6.3-8.2) g/dL Albumin (3.5-5.0) g/dL Lipase (23-300) U/L Urine Color Urine Appearance (Clear) Urine pH (5.0-8.0) Ur Specific [place] (1.001-1.035) Urine Protein (Negative) Urine Glucose (UA) (Negative) Urine Ketones (Negative) Urine Blood (Negative) Urine Nitrite (Negative) Urine Bilirubin (Negative) Urine Urobilinogen (<2.0) mg/dL Ur Leukocyte Esterase (Negative) Disposition Clinical Impression: Right upper quadrant abdominal pain, Nausea Disposition: HOME SELF-CARE Condition: Stable Instructions (If sedation given, give patient instructions): Colitis (ED) Additional Instructions: Please return to the Emergency Department if symptoms worsen or any other co ncerns. Recommend taking omeprazole for 1-2 weeks, take antibiotic as prescribed. Drink plenty of fluids. Follow-up with your regular doctor. Prescriptions: Amoxicillin/Potassium Clav [Augmentin 875-125 Tablet] 1 tab PO BID 5 Days #10 tab Omeprazole 40 mg PO DAILY #14 capsule.dr Is patient prescribed a controlled substance at d/c from ED?: No Referrals: Shayna Farias MD [Primary Care Provider] - 1-2 days
[2020-11-01 11:09] LABS: Basophils % (A) 1 %; Eosinophils % (A) 1 %; HCT 39.8 % (34.0-46.0); HGB 13.6 gm/dL (11.4-16.0); Lymphocytes # (A) 1.3 k/uL (1.0-4.8); Lymphocytes % (A) 28 %; MCH 29.5 pg (25.0-35.0); MCHC 34.1 g/dL (31.0-37.0); MCV 86.6 fL (80.0-100.0); Mean Platelet Volume 6.2; Monocytes # (A) 0.3 k/uL (0-1.0); Monocytes % (A) 7 %; Neutrophils # (A) 2.8 k/uL (1.3-7.7); Neutrophils % (A) 60 %; Platelet Count 242 k/uL (150-450); RDW 13.2 % (11.5-15.5); WBC 4.6 k/uL (3.8-10.6)
[2020-11-01 11:11] LABS: Appearance,Urine Clear (Clear); Bilirubin,Urine Negative (Negative); Blood,Urine Negative (Negative); Color,Urine Yellow; Glucose,Urine (UA) Negative (Negative); Ketones,Urine Negative (Negative); Leukocyte Esterase,Urine Negative (Negative); Nitrite,Urine Negative (Negative); PH, Urine 7.5 (5.0-8.0); Protein,Urine Trace (Negative); Specific Gravity,Urine 1.023 (1.001-1.035); Urobilinogen,Urine <2.0 mg/dL (<2.0)
--- NOTE | 2020-11-01 11:21 | XR ---
EXAMINATION TYPE: XR chest 2V DATE OF EXAM: 11/01/2020 COMPARISON: Chest x-ray May 07, 2017 HISTORY: Right-sided chest pain. TECHNIQUE: Frontal and lateral views of the chest are obtained. FINDINGS: There is no focal air space opacity, pleural effusion, or pneumothorax seen. The cardiac silhouette size remains within normal limits. The osseous structures are intact. IMPRESSION: No acute process. No significant change from prior.
[2020-11-01 11:28] LABS: ALT 36 U/L (4-34); AST 34 U/L (14-36); African American GFR (CKD) >90 (>60 ml/min/1.73 sqM); Albumin 4.8 g/dL (3.5-5.0); Alkaline Phosphatase 91 U/L (38-126); Anion Gap 7 mmol/L; Blood Urea Nitrogen 14 mg/dL (7-17); Calcium 9.6 mg/dL (8.4-10.2); Carbon Dioxide 26 mmol/L (22-30); Chloride 104 mmol/L (98-107); Glucose 113 mg/dL (74-99); Lipase 52 U/L (23-300); Non-African American GFR(CKD) >90 (>60 ml/min/1.73 sqM); Potassium 4.1 mmol/L (3.5-5.1); Sodium 137 mmol/L (137-145); Total Bilirubin 0.4 mg/dL (0.2-1.3); Total Protein 7.8 g/dL (6.3-8.2)
[2020-11-01 11:30] LABS: INR 0.9 (<1.2); Prothrombin Time 10.1 sec (9.0-12.0)
[2020-11-01 11:31] LABS: Partial Thromboplastin Time 21.5 sec (22.0-30.0)
--- NOTE | 2020-11-01 12:01 | US ---
EXAMINATION TYPE: US gallbladder DATE OF EXAM: 11/01/2020 COMPARISON: CT abdomen and pelvis May 07, 2017 CLINICAL HISTORY: RUQ pain. EXAM MEASUREMENTS: Liver Length: 15.4 cm Gallbladder Wall: 0.2 cm CBD: 0.2 cm Right Kidney: 10.6 x 4.7 x 4.5 cm Pancreas: portions visualized wnl, partially obscured by overlying bowel gas Liver: Increased attenuation heterogeneously Gallbladder: Possible mild sludge versus artifact without wall thickening, no shadowing mobile gallst ones. Evidence for sonographic Machado's sign: No CBD: wnl Right Kidney: wnl Heterogeneous hyperechoic appearance to liver makes evaluation for focal masses suboptimal. IMPRESSION: NO SHADOWING MOBILE GALLSTONES OR ULTRASOUND EVIDENCE FOR ACUTE CHOLECYSTITIS. UNDERLYING HEPATOCELLULAR DISEASE AND/OR DIFFUSE FATTY INFILTRATION. CORRELATE CLINICALLY.
[2020-11-01] MEDS ORDERED: MORPHINE SULFATE 2 MG/ML SYRINGE IVP ONE (12:33)
[2020-11-01 14:26] VITALS: TEMP 98.6
--- NOTE | 2020-11-01 15:01 | CT ---
EXAMINATION TYPE: CT abdomen pelvis w con DATE OF EXAM: 11/01/2020 HISTORY: Rt side abd pain CT DLP: 750.3mGycm Automated Exposure Control for Dose Reduction was Utilized. CONTRAST: CT scan of the abdomen and pelvis is performed without oral but with IV Contrast, patient injected wi th 100 mL of Isovue 300. COMPARISON: CT May 07, 2017. Same day ultrasound. FINDINGS: LUNG BASES: Mild to moderate linear atelectasis and/or scarring left greater than right lung base mor e prominent from prior. LIVER/GB: Visualized liver remains heterogeneously hypodense to spleen consistent with diffuse fatty infiltration and correlates with recent ultrasound. PANCREAS: No significant abnormality is seen. SPLEEN: Occasional tiny splenule in the splenic hilum redemonstrated. ADRENALS: No significant abnormality is seen. KIDNEYS: Symmetric cortical medullary uptake and excretion without concerning renal mass or hydroneph rosis seen bilaterally. BOWEL: Suboptimal evaluation bowel without enteric contrast. Stomach poorly distended and thus subopt imally evaluated. No suspicious small or large bowel dilatation. Normal-appearing appendix seen from base of cecum ascending superiorly in the right lower quadrant. Mild to moderate wall thickening in t he transverse left and sigmoid colon. Occasional diverticula in the sigmoid colon. No surrounding fat stranding identified currently to suggest acute diverticulitis. UTERUS/ADNEXA: Uterus surgically absent. LYMPH NODES: No greater than 1cm abdominal or pelvic lymph nodes are appreciated. OSSEOUS STRUCTURES: Slight lateral step-off L3 on L4 redemonstrated moderate disc space narrowing L5- S1 level redemonstrated. Posterior disc herniation L3-L4 level effaces the anterior thecal sac with f acet arthropathy effacing posterior lateral thecal sac on axial image 47 redemonstrated more prominen t from prior consistent with interval degenerative progression. Moderate axial joint space loss and m ild to moderate acetabular spurring in both hips. OTHER: No significant additional abnormality is seen. IMPRESSION: Possible mild uncomplicated acute colitis transverse colon through the sigmoid colon. Dif ferential includes infectious and/or inflammatory etiologies. Correlate clinically.
[2020-11-01 15:16] VITALS: BP 154/78; PULSE 71; RESP 18
== END 2020-11-01 15:23 | disposition home or self-care (01) ==
LOC: EC 09:59
DX: R10.11 Right upper quadrant pain (principal); R11.0 Nausea; R07.81 Pleurodynia; Z90.710 Acquired absence of both cervix and uterus; Z88.1 Allergy status to other antibiotic agents; W00.0XXA Fall on same level due to ice and snow, initial encounter; W18.49XA Other slipping, tripping and stumbling without falling, initial encounter
CPT/HCPCS: 36415; 93005; 80053; 83605; 83690; 84484; 85025; 85610; 85730; 81003; 71046; 76705; 74177; 99284; 96374; 96375; 96361; J2270; J1885; Q9967

== ENCOUNTER → 2020-12-30 | Outpatient (CLI) | payer MEDICARE ==
--- NOTE | 2020-12-31 11:34 | MM ---
Reason for exam: screening (asymptomatic). Last mammogram was performed 1 year and 5 months ago. History: Family history of breast cancer in maternal grandmother at age 80. Physical Findings: A clinical breast exam by your physician is recommended on an annual basis and results should be correlated with mammographic findings. MG 3D Screening Mammo W/Cad Bilateral CC and MLO view(s) were taken. Prior study comparison: July 24, 2019, bilateral MG 3d screening mammo w/cad. July 19, 2018, left breast MG 3d work up w/cad LT. There are scattered fibroglandular densities. No significant changes when compared with prior studies. ASSESSMENT: Benign, BI-RAD 2 RECOMMENDATION: Routine screening mammogram of both breasts in 1 year.
== END | disposition home or self-care (01) ==
LOC: RADMAMWWP 10:52
PROVIDERS: ATTEND Internal Medicine
DX: Z12.31 Encounter for screening mammogram for malignant neoplasm of breast (principal)
CPT/HCPCS: 77063; 77067

== ENCOUNTER → 2022-03-17 | Outpatient (CLI) | payer MEDICARE ==
--- NOTE | 2022-03-17 19:09 | BD ---
EXAMINATION TYPE: Axial Bone Density DATE OF EXAM: 03/17/2022 CLINICAL HISTORY: 72 years year old Female. ICD-10 CODE: N95.8 Other specified menopausal and perime nopausal disorder Height: 5 FT 5 IN Weight: 149 FRAX RISK QUESTIONS: Alcohol (3 or more units per day): NO Family History (Parent hip fracture): NO Glucocorticoids (More than 3mos): NO (Ex: prednisone, prednisolone, methylprednisolone, dexamethasone, and hydrocortisone). History of Fracture in Adulthood: NO Secondary Osteoporosis: 1. Type 1 Diabetes: NO 2. Hyperthyroidism: NO 3. Menopause before 45: NO 4. Malnutrition: NO 5. Chronic liver disease: NO Rheumatoid Arthritis: NO Current Tobacco Use: NO RISK FACTORS HISTORY OF: Surgery to Spine/Hip(right/left)/Wrist (right/left): NO Family History of Osteoporosis: YES Active: YES Diet low in dairy products/other sources of calcium: NO Postmenopausal woman: YES Take estrogen and/or progesterone medications: NO Lost more than 2 inches in height since high school: NO Frequent falls: NO Poor Health: GOOD Hyperparathyroidism: NO Adrenal Insufficiency: NO MEDICATIONS: Additional Medications: SIMVASTATAN Additional History: EXAM MEASUREMENTS: Bone mineral densitometry was performed using the [employer] System. Bone mineral density as measured about the Lumbar spine is: ----- L1-L4(G/cm2): 1.215 T Score Values are as follows: ----- L1: -0.4 ----- L2: -0.8 ----- L3: 1.1 ----- L4: 0.7 ----- L1-L4: 0.3 Bone mineral density has: DECREASED -1.9 % since study of: 2007 Bone mineral density about the R hip (g/cm2): 0.857 Bone mineral density about the L hip (g/cm2): 0.887 T Score values are as follows: -----R Neck: -1.3 -----L Neck: -1.1 -----R Total: -1.0 -----L Total: -0.8 Bone mineral density has: DECREASED -9.1 % since study of: 2007 FRAX%s: The graph provided illustrates a 16.1 % chance for a major osteoporotic fx and a 2.4 % chance for the hips probability for fx in 10 years time. IMPRESSION: Osteopenia (T Score between -2.5 and -1). There is slightly increased risk of fracture and the patient may be considered for treatment. Re-Screen 2-5 years. NOTE: T-SCORE=SD OF THE YOUNG ADULT MEAN.
--- NOTE | 2022-03-18 09:34 | MM ---
Reason for Exam: Screening (asymptomatic). Last mammogram was performed 1 year(s) and 3 month(s) ago. Patient History: Menarche at age 11. First Full-Term at age 17. Hysterectomy at age 42. Postmenopausal. Patient has history of breast feeding. Maternal grandmother had breast cancer, age 80. Risk Values: Alisson 5 year model risk: 1.3%. NCI Lifetime model risk: 3.1%. Prior Study Comparison: 07/19/2018 Left Diagnostic Mammogram, [facility]. 07/24/2019 Bilateral Screening Mammogram, [facility]. 12/30/2020 Bilateral Screening Mammogram, [facility]. Tissue Density: The breast tissue is heterogeneously dense. This may lower the sensitivity of mammography. Findings: Analyzed By CAD. There is no suspicious group of microcalcifications or new suspicious mass in either breast. Stable benign calcifications. Overall Assessment: Benign, BI-RAD 2 Management: Screening Mammogram of both breasts in 1 year. A clinical breast exam by your physician is recommended on an annual basis and results should be correlated with mammographic findings. Electronically signed and approved by: Francisco Pompa M.D. Radiologis
== END | disposition home or self-care (01) ==
LOC: RADMAMWWP 08:58
PROVIDERS: ATTEND Internal Medicine
DX: Z12.31 Encounter for screening mammogram for malignant neoplasm of breast (principal); M85.89 Other specified disorders of bone density and structure, multiple sites; Z78.0 Asymptomatic menopausal state; Z80.3 Family history of malignant neoplasm of breast
CPT/HCPCS: 77063; 77067; 77080

== ENCOUNTER 2022-10-23 18:45 | Emergency (ER) | payer MEDICARE ==
[2022-10-23] MEDS ORDERED: KETOROLAC 15 MG/ML 1 ML VIAL IVP STA (20:18)
[2022-10-23] MEDS ORDERED: SODIUM CHLORIDE 0.9% 1,000 ML IV STA (20:18)
[2022-10-23] MEDS ORDERED: ACETAMINOPHEN TAB 500 MG TAB PO STA (20:19)
[2022-10-23 20:35] LABS: Appearance,Urine Clear (Clear); Bilirubin,Urine Negative (Negative); Blood,Urine Negative (Negative); Color,Urine Yellow; Glucose,Urine (UA) Negative (Negative); Ketones,Urine Negative (Negative); Leukocyte Esterase,Urine Negative (Negative); Nitrite,Urine Negative (Negative); Protein,Urine Trace (Negative); Specific Gravity,Urine 1.025 (1.001-1.035); Urobilinogen,Urine <2.0 mg/dL (<2.0)
[2022-10-23 20:47] LABS: Basophils % (A) 0 %; Eosinophils # (A) 0.1 k/uL (0-0.7); Eosinophils % (A) 1 %; HCT 41.7 % (34.0-46.0); HGB 13.9 gm/dL (11.4-16.0); Lymphocytes # (A) 1.1 k/uL (1.0-4.8); Lymphocytes % (A) 11 %; MCH 29.3 pg (25.0-35.0); MCHC 33.4 g/dL (31.0-37.0); MCV 87.8 fL (80.0-100.0); Monocytes # (A) 0.6 k/uL (0-1.0); Monocytes % (A) 6 %; Neutrophils # (A) 8.4 k/uL (1.3-7.7); Neutrophils % (A) 81 %; Platelet Count 221 k/uL (150-450); RBC 4.75 m/uL (3.80-5.40); RDW 13.8 % (11.5-15.5); WBC 10.4 k/uL (3.8-10.6)
[2022-10-23 20:49] VITALS: PULSE 97; RESP 18
[2022-10-23 20:57] LABS: ALT 26 U/L (4-34); AST 24 U/L (14-36); African American GFR (CKD) >90 (>60 ml/min/1.73 sqM); Albumin 4.9 g/dL (3.5-5.0); Alkaline Phosphatase 83 U/L (38-126); Amylase 62 U/L (30-110); Anion Gap 8 mmol/L; Blood Urea Nitrogen 15 mg/dL (7-17); Calcium 9.5 mg/dL (8.4-10.2); Carbon Dioxide 30 mmol/L (22-30); Chloride 99 mmol/L (98-107); Glucose 127 mg/dL (74-99); Lipase 52 U/L (23-300); Non-African American GFR(CKD) >90 (>60 ml/min/1.73 sqM); Sodium 137 mmol/L (137-145); Total Bilirubin 0.3 mg/dL (0.2-1.3); Total Protein 7.9 g/dL (6.3-8.2)
[2022-10-23 21:09] LABS: INR 0.9 (<1.2); Prothrombin Time 9.6 sec (9.0-12.0)
[2022-10-23 21:57] VITALS: BP 141/74; TEMP 99.1
--- NOTE | 2022-10-23 22:06 | CT ---
EXAMINATION TYPE: CT abdomen pelvis w con DATE OF EXAM: 10/23/2022 COMPARISON: 11/01/2020 HISTORY: abd pain h/o diverticulitis CT DLP: 811.7 mGycm Automated exposure control for dose reduction was used. CONTRAST: Performed with IV Contrast, patient injected with 100 mL of Isovue 300. Images obtained from the diaphragm to the floor the pelvis with the IV contrast. Lung bases show mild subsegmental atelectasis. Heart size is normal. No pericardial effusion. No pleu ral effusion. Liver spleen pancreas gallbladder and stomach appear intact. The bile duct are not dilated. There is no adrenal mass. Kidneys show satisfactory contrast opacification. No hydronephrosis. Ureter s are not dilated. Appendix is posterior and appears normal. No retroperitoneal adenopathy. Bladder d istends smoothly. There is small amount of low-density fluid in the pelvis. There is some straighteni ng and wall thickening of the mid sigmoid colon. There is mild adjacent fat stranding. There is no mesenteric edema. No free air. No evidence of bowel obstruction. The lumbar vertebrae hav e normal alignment. No compression fracture. Bony pelvis is intact. The hip joints are intact. IMPRESSION: There is some mild wall thickening of the mid sigmoid colon that could be some nonspecific colitis. M ild adjacent fat stranding. Abnormality appears new compared to old exam. There is minimal free fluid in the pelvis compared to old exam. There are a few sigmoid diverticula.
[2022-10-23] MEDS ORDERED: AMOXIC-POT CLAV 875-125MG 1 EACH TAB PO STA (22:26)
--- NOTE | 2022-10-23 22:27 | ED ---
General Adult HPI - General Chief complaint: Abdominal Pain Stated complaint: Abd Pain Time Seen by Provider: 10/23/22 20:06 Source: patient, RN notes reviewed, old records reviewed Mode of arrival: ambulatory Limitations: no limitations - History of Present Illness Initial comments: Patient is a 72-year-old female with past medical history remarkable for diverticulitis, hypercholesterolemia who presents emergency Department complaining of suprapubic and left lower quadrant abdominal pain starting this morning and has progressively worsened throughout the day. Has noticed some nonbloody diarrhea with it. Has had a few episodes of this. Denies any nausea or vomiting. Descriptive pain is crampy, sharp. Does not radiate. No flank pain. No dysuria or hematuria. No chest pain, shortness of breath. Denies having fevers. No acute complaints at this time. Presents for further evaluation of this time. Has a history of a hysterectomy but no other abdominal surgeries. Patient is ALLERGIC to ciprofloxacin. - Related Data Home Medications Medication Instructions Recorded Confirmed Calcium W/Vitamin D3(Unknown Dose) 1 tab PO TID 11/01/20 11/01/20 Multivitamins, Thera [Multivitamin 1 tab PO DAILY 11/01/20 11/01/20 (formulary)] Simvastatin 20 mg PO HS 11/01/20 11/01/20 Previous Rx's Medication Instructions Recorded Amoxicillin/Potassium Clav 1 tab PO BID 5 Days #10 tab 11/01/20 [Augmentin 875-125 Tablet] Omeprazole 40 mg PO DAILY #14 capsule. 11/01/20 Amoxic-Pot Clav 875-125Mg 1 tab PO Q12HR 10 Days #20 tab 10/23/22 [Augmentin 875-125] Allergies Allergy/AdvReac Type Severity Reaction Status Date / Time ciprofloxacin Allergy Rash/Hives Verified 10/23/22 19:21 erythromycin base AdvReac Severe Nausea & Verified 10/23/22 19:21 [From Erythrocin] Vomiting Review of Systems ROS Statement: Those systems with pertinent positive or pertinent negative responses have been documented in the HPI. Review of Systems: CONST: Denies fever EYES: Denies blurry vision ENT: Denies nasal congestion C/V: Denies Chest pain RESP: Denies shortness of breath GI: Endorses abdominal pain : Denies dysuria SKIN: Denies rash. MSK: Denies joint pain. NEURO: Denies headache ROS Other: All systems not noted in ROS Statement are negative. Past Medical History Past Medical History: No Reported History Additional Past Medical History / Comment(s): DIVERTICULITIS History of Any Multi-Drug Resistant Organisms: None Reported Past Surgical History: Hysterectomy, Orthopedic Surgery Additional Past Surgical History / Comment(s): COLONOSCOPY. TRIGGER FINGER REPAIR RT HAND Past Anesthesia/Blood Transfusion Reactions: No Reported Reaction Past Psychological History: No Psychological Hx Reported Smoking Status: Never smoker Past Alcohol Use History: None Reported Past Drug Use History: None Reported - Past Family History Mother Family Medical History: Cancer, Deep Vein Thrombosis (DVT) Father Family Medical History: Cancer Brother(s) Family Medical History: Cancer General Exam - General Exam Comments Initial Comments: General: Appears in no acute distress. Low-grade fever. HEAD: Normal with no signs of head trauma. EYES: PERRLA, EOMI, conjunctiva normal, no discharge. ENT: Hearing grossly intact, normal oropharynx. RESPIRATORY: Clear breath sounds bilaterally. No wheezes, rales, or rhonchi. C/V: Regular rate and rhythm. S1 and S2 auscultated, no edema, peripheral pulses 2+ and intact throughout ABD: Abdomen soft, nondistended. Tender to palpation in the left lower quadrant, suprapubic region. No guarding. No peritoneal signs. No rebound t enderness. No flank tenderness to palpation. No CVA tenderness to percussion. EXT: Normal range of motion, no obvious deformity SKIN: No rashes or lesions observed on exposed skin. NEURO: Alert and oriented 4. Limitations: no limitations Course Vital Signs 10/23/22 10/23/22 10/23/22 19:19 20:48 21:57 Temperature 100.3 F H 99.1 F Pulse Rate 113 H 97 97 Respiratory 22 18 18 Rate Blood Pressure 154/87 155/74 141/74 O2 Sat by Pulse 99 97 96 Oximetry Medical Decision Making - Medical Decision Making Was pt. sent in by a medical professional or institution (, PA, CARBURETOR EXPERT, urgent care, hospital, or usp...) When possible be specific @ -No Did you speak to anyone other than the patient for history (EMS, parent, family, police, friend...)? What history was obtained from this source @ -No Did you review nursing and triage notes (agree or disagree)? Why? @ -I reviewed and agree with nursing and triage notes Were old charts reviewed (outside hosp., previous admission, EMS record, old EKG, old radiological studies, urgent care reports/EKG's, usp records)? Report findings @ -No old charts were reviewed Differential Diagnosis (chest pain, altered mental status, abdominal pain women, abdominal pain men, vaginal bleeding, weakness, fever, dyspnea, syncope, headache, dizziness, GI bleed, back pain, seizure, CVA, palpatations, mental health)? @ -Differential Abdominal Pain Women: Appendicitis, Cholecystitis, diverticulosis, ischemic bowel, pancreatitis, hepatitis, UTI, gastroenteritis, AAA, incarcerated hernia, bowel obstruction, constipation, inflammatory bowel, hepatitis, peptic ulcer disease, splenic infarction, perforated viscus, vulvitis, ovarian torsion, PID, kidney stone, placenta abruption, this is not meant to be an all-inclusive list EKG interpreted by me (3pts min.). @ -Not done X-rays interpreted by me (1pt min.). @ -None done CT interpreted by me (1pt min.). @ -CT abdomen and pelvis revealed findings suggestive of colitis nearsighted diverticula. No melanie diverticulitis seen. No abscess. U/S interpreted by me (1pt. min.). @ -None done What testing was considered but not performed or refused? (CT, X-rays, U/S, labs)? Why? @ -None What meds were considered but not given or refused? Why? @ -None Did you discuss the management of the patient with other professionals (professionals i.e. , PA, CARBURETOR EXPERT, lab, RT, psych nurse, addiction social worker, rental coordinator, teacher, front desk officer, caseworker)? Give summary @ -No Was smoking cessation discussed for >3mins.? @ -No Was critical care preformed (if so, how long)? @ -No Were there social determinants of health that impacted care today? How? (Homelessness, low income, unemployed, alcoholism, drug addiction, transportation, low edu. Level, literacy, decrease access to med. care, [facility], rehab)? @ -No Was there de-escalation of care discussed even if they declined (Discuss DNR or withdrawal of care, Hospice)? DNR status @ -No What co-morbidities impacted this encounter? (DM, HTN, Smoking, COPD, CAD, Cancer, CVA, ARF, Chemo, Hep., AIDS, mental health diagnosis, sleep apnea, morbid obesity)? @ -None Was patient admitted / discharged? Hospital course, mention meds given and route, prescriptions, significant lab abnormalities, going to OR and other pertinent info. @ -Based on the patient's presentation and physical exam, I'm concerned for intra-abdominal process for current symptoms. Primary concern is urinary versus bowel issues such as diverticulitis. We will obtain abdominal laboratory studies, urine studies, as well as a CT abdomen and pelvis with contrast. She'll be given a 1 L fluid bolus. I did offer analgesia and she'll accept Toradol at this time. She is a low-grade fever and will be given acetaminophen. Patient was in agreement this plan. Other than the fever, vital signs within acceptable limits. CT abdomen and pelvis shows colitis but no melanie diverticulitis. Laboratory studies were remarkable for normal urinalysis. The remainder labs are unremarkable including a normal lactic acid, and absence of leukocytosis. I discussed the workup with the patient. I'm concerned for her colitis, and with her history of diverticulitis and the location of the colitis I did offer her antibiotic switch she accepted. I offered her Bentyl for home as well which she declined. She was in agreement with this plan. She is holding oral intake. Can be discharged home at this time with close follow-up. Strict return precautions were discussed. Was given a dose of Augmentin prior to discharge. I will provide the patient with a prescription for Augmentin. I instructed the patient to follow up with their PCP in the next 1-3 days. I explained that the patient should return to the emergency department if they experience any worsening symptoms. Strict return precautions were discussed with the patient. The patient expressed understanding of these instructions. I answered all questions that the patient had. The patient was discharged home in good condition with their prescriptions and follow up information. Undiagnosed new problem with uncertain prognosis? @ -No Drug Therapy requiring intensive monitoring for toxicity (Heparin, Nitro, Insulin, Cardizem)? @ -No Were any procedures done? @ -No Diagnosis/symptom? @ -Colitis Acute, or Chronic, or Acute on Chronic? @ -Acute Uncomplicated (without systemic symptoms) or Complicated (systemic symptoms)? @ -Uncomplicated Side effects of treatment? @ -No Exacerbation, Progression, or Severe Exacerbation? @ -No Poses a threat to life or bodily function? How? (Chest pain, [place], [place], pneumonia, PE, COPD, DKA, ARF, appy, cholecystitis, CVA, Diverticulitis, Homicidal, Suicidal, threat to staff... and all critical care pts) @ -No - Lab Data Result diagrams: 10/23/22 20:28 10/23/22 20:28 Lab Results 10/23/22 10/23/22 10/23/22 Range/Units 20:28 20:28 20:28 WBC 10.4 (3.8-10.6) k/uL RBC 4.75 (3.80-5.40) m/uL Hgb 13.9 (11.4-16.0) gm/dL Hct 41.7 (34.0-46.0) % MCV 87.8 (80.0-100.0) fL MCH 29.3 (25.0-35.0) pg MCHC 33.4 (31.0-37.0) g/dL RDW 13.8 (11.5-15.5) % Plt Count 221 (150-450) k/uL MPV 7.0 Neutrophils % 81 % Lymphocytes % 11 % Monocytes % 6 % Eosinophils % 1 % Basophils % 0 % Neutrophils # 8.4 H (1.3-7.7) k/uL Lymphocytes # 1.1 (1.0-4.8) k/uL Monocytes # 0.6 (0-1.0) k/uL Eosinophils # 0.1 (0-0.7) k/uL Basophils # 0.0 (0-0.2) k/uL PT 9.6 (9.0-12.0) sec INR 0.9 (<1.2) APTT 22.0 (22.0-30.0) sec Sodium 137 (137-145) mmol/L Potassium 4.0 (3.5-5.1) mmol/L Chloride 99 (98-107) mmol/L Carbon Dioxide 30 (22-30) mmol/L Anion Gap 8 mmol/L BUN 15 (7-17) mg/dL Creatinine 0.51 L (0.52-1.04) mg/dL Est GFR (CKD-EPI)AfAm >90 (>60 ml/min/1.73 sqM) Est GFR (CKD-EPI)NonAf >90 (>60 ml/min/1.73 sqM) Glucose 127 H (74-99) mg/dL Plasma Lactic Acid Salty (0.7-2.0) mmol/L Calcium 9.5 (8.4-10.2) mg/dL Total Bilirubin 0.3 (0.2-1.3) mg/dL AST 24 (14-36) U/L ALT 26 (4-34) U/L Alkaline Phosphatase 83 (38-126) U/L Total Protein 7.9 (6.3-8.2) g/dL Albumin 4.9 (3.5-5.0) g/dL Amylase 62 (30-110) U/L Lipase 52 (23-300) U/L Urine Color Urine Appearance (Clear) Urine pH (5.0-8.0) Ur Specific [place] (1.001-1.035) Urine Protein (Negative) Urine Glucose (UA) (Negative) Urine Ketones (Negative) Urine Blood (Negative) Urine Nitrite (Negative) Urine Bilirubin (Negative) Urine Urobilinogen (<2.0) mg/dL Ur Leukocyte Esterase (Negative) 10/23/22 10/23/22 Range/Units 20:28 20:28 WBC (3.8-10.6) k/uL RBC (3.80-5.40) m/uL Hgb (11.4-16.0) gm/dL Hct (34.0-46.0) % MCV (80.0-100.0) fL MCH (25.0-35.0) pg MCHC (31.0-37.0) g/dL RDW (11.5-15.5) % Plt Count (150-450) k/uL MPV Neutrophils % % Lymphocytes % % Monocytes % % Eosinophils % % Basophils % % Neutrophils # (1.3-7.7) k/uL Lymphocytes # (1.0-4.8) k/uL Monocytes # (0-1.0) k/uL Eosinophils # (0-0.7) k/uL Basophils # (0-0.2) k/uL PT (9.0-12.0) sec INR (<1.2) APTT (22.0-30.0) sec Sodium (137-145) mmol/L Potassium (3.5-5.1) mmol/L Chloride (98-107) mmol/L Carbon Dioxide (22-30) mmol/L Anion Gap mmol/L BUN (7-17) mg/dL Creatinine (0.52-1.04) mg/dL Est GFR (CKD-EPI)AfAm (>60 ml/min/1.73 sqM) Est GFR (CKD-EPI)NonAf (>60 ml/min/1.73 sqM) Glucose (74-99) mg/dL Plasma Lactic Acid Salty 1.3 (0.7-2.0) mmol/L Calcium (8.4-10.2) mg/dL Total Bilirubin (0.2-1.3) mg/dL AST (14-36) U/L ALT (4-34) U/L Alkaline Phosphatase (38-126) U/L Total Protein (6.3-8.2) g/dL Albumin (3.5-5.0) g/dL Amylase (30-110) U/L Lipase (23-300) U/L Urine Color Yellow Urine Appearance Clear (Clear) Urine pH 5.0 (5.0-8.0) Ur Specific [place] 1.025 (1.001-1.035) Urine Protein Trace H (Negative) Urine Glucose (UA) Negative (Negative) Urine Ketones Negative (Negative) Urine Blood Negative (Negative) Urine Nitrite Negative (Negative) Urine Bilirubin Negative (Negative) Urine Urobilinogen <2.0 (<2.0) mg/dL Ur Leukocyte Esterase Negative (Negative) Disposition Clinical Impression: Colitis Disposition: HOME SELF-CARE Condition: Good Instructions (If sedation given, give patient instructions): Colitis (ED) Prescriptions: Amoxic-Pot Clav 875-125Mg [Augmentin 875-125] 1 tab PO Q12HR 10 Days #20 tab Is patient prescribed a controlled substance at d/c from ED?: No Referrals: Shayna Farias MD [Primary Care Provider] - 1-2 days Time of Disposition: 22:19
== END 2022-10-23 22:43 | disposition home or self-care (01) ==
LOC: EC 18:45
DX: K52.9 Noninfective gastroenteritis and colitis, unspecified (principal); Z88.1 Allergy status to other antibiotic agents; Z88.8 Allergy status to other drugs, medicaments and biological substances
CPT/HCPCS: 36415; 80053; 82150; 83605; 83690; 85025; 85610; 85730; 81003; 74177; 99284; 96374; 96361; J1885; Q9967

== ENCOUNTER → 2023-05-13 | Outpatient (CLI) | payer MEDICARE ==
--- NOTE | 2023-05-14 20:33 | MM ---
Reason for Exam: Screening (asymptomatic). Last mammogram was performed 1 year(s) and 2 month(s) ago. Patient History: Menarche at age 11. First Full-Term at age 17. Hysterectomy at age 42. Postmenopausal. Patient has history of breast feeding. Maternal grandmother had breast cancer, age 80. Risk Values: Alisson 5 year model risk: 1.3%. NCI Lifetime model risk: 3.0%. Prior Study Comparison: 07/24/2019 Bilateral Screening Mammogram, [facility]. 12/30/2020 Bilateral Screening Mammogram, [facility]. 03/17/2022 Bilateral MG 3D screening mammo w/cad, [facility]. Tissue Density: There are scattered fibroglandular densities. Findings: Analyzed By CAD. There is no suspicious group of microcalcifications or new suspicious mass in either breast. Overall Assessment: Negative, BI-RAD 1 Management: Screening Mammogram of both breasts in 1 year. . Patient should continue monthly self-breast exams. A clinical breast exam by your physician is recommended on an annual basis. This exam should not preclude additional follow-up of suspicious palpable abnormalities. Note on Alisson scores and lifetime risk: 1. A Alisson score greater than 3% is considered moderate risk. If this is the case, consider specialist referral to assess eligibility for a risk reducing agent. 2. If overall lifetime risk for the development of breast cancer is 20% or higher, the patient may qualify for future screening with alternating mammogram and breast MRI. Electronically signed and approved by: Nahum Garcia M.D. Radiologist
== END | disposition home or self-care (01) ==
LOC: RADMAMWWP 10:29
PROVIDERS: ATTEND Internal Medicine
DX: Z12.31 Encounter for screening mammogram for malignant neoplasm of breast (principal); Z78.0 Asymptomatic menopausal state; Z80.3 Family history of malignant neoplasm of breast
CPT/HCPCS: 77063; 77067

== ENCOUNTER → 2024-01-25 | Outpatient (CLI) | payer MEDICARE ==
--- NOTE | 2024-01-25 12:14 | XR ---
EXAMINATION TYPE: XR knee complete LT DATE OF EXAM: 01/25/2024 COMPARISON: None HISTORY: Pain TECHNIQUE: 3 view left knee FINDINGS: Joint spaces are preserved. No joint effusion is evident. No acute fracture or dislocation evident. Follow up exams can be performed 7-10 days from acute trauma for continued pain. MRI can be performed to soft tissue evaluation would be of benefit. IMPRESSION: 1. No acute osseous abnormality left knee
== END | disposition home or self-care (01) ==
LOC: RADXRYALE 11:02
PROVIDERS: ATTEND Internal Medicine
DX: M25.562 Pain in left knee (principal)

== ENCOUNTER → 2024-06-07 | Outpatient (CLI) | payer MEDICARE ==
--- NOTE | 2024-06-14 07:33 | MM ---
Reason for Exam: Screening (asymptomatic). Last screening mammogram was performed 12 month(s) ago. Patient History: Menarche at age 11. First Full-Term at age 17. Hysterectomy at age 42. Postmenopausal. Patient has history of breast feeding. Maternal grandmother had breast cancer, age 80. Risk Values: Alisson 5 year model risk: 1.3%. NCI Lifetime model risk: 2.8%. Prior Study Comparison: 06/15/2017 Bilateral Screening Mammogram, [facility]. 07/06/2018 Bilateral Screening Mammogram, [facility]. 07/19/2018 Left Diagnostic Mammogram, [facility]. 07/24/2019 Bilateral Screening Mammogram, [facility]. 12/30/2020 Bilateral Screening Mammogram, [facility]. 03/17/2022 Bilateral MG 3D screening mammo w/cad, [facility]. 05/13/2023 Bilateral MG 3D screening mammo w/cad, [facility]. Tissue Density: There are scattered areas of fibroglandular density. Findings: Analyzed By CAD. Right breast: There is no suspicious group of microcalcifications or new suspicious mass. Left breast: There is no suspicious group of microcalcifications or new suspicious mass. Overall Assessment: Negative, BI-RAD 1 Management: Screening Mammogram of both breasts in [address] [facility] will attempt to contact patient to return for supplemental views and ultrasound if indicated. Patient should continue monthly self-breast exams. A clinical breast exam by your physician is recommended on an annual basis. This exam should not preclude additional follow-up of suspicious palpable abnormalities. Note on Alisson scores and lifetime risk: 1. A Alisson score greater than 3% is considered moderate risk. If this is the case, consider specialist referral to assess eligibility for a risk reducing agent. 2. If overall lifetime risk for the development of breast cancer is 20% or higher, the patient may qualify for future screening with alternating mammogram and breast MRI. Electronically signed and approved by: Real Austin DO
== END | disposition home or self-care (01) ==
LOC: RADMAMWWP 09:39
PROVIDERS: ATTEND Internal Medicine
DX: Z12.31 Encounter for screening mammogram for malignant neoplasm of breast
CPT/HCPCS: 77063; 77067

== ENCOUNTER → 2024-07-27 | Outpatient (CLI) | payer MEDICARE ==
--- NOTE | 2024-07-27 11:50 | XR ---
Lumbar spine. HISTORY: Right sided sciatica. COMPARISON: None. TECHNIQUE: 5 views of the lumbar spine FINDINGS: Lumbar vertebral segments are normal in height. There is mild narrowing of the L1-2, L3-4 and L4-5 di scs disc with mild spondylosis. There is moderate narrowing and vacuum phenomenon with spondylosis a t the L5-S1 level. There is a slight retrolisthesis of L5 on S1. There is sclerosis of facets throughout the lumbar region. The sacrum and SI joints are normal. IMPRESSION: 1. No lumbar spine fracture. 2. Slight retrolisthesis of L5 on S1. 3. Multilevel degenerative disease moderate at the L5-S1 level. [facility], , 07/27/2024 11:48 AM
== END | disposition home or self-care (01) ==
LOC: RADXRYALE 11:20
PROVIDERS: ATTEND Internal Medicine
CPT/HCPCS: 72110